=== PATIENT | male | born 1940 | race Caucasian/White ===

== ENCOUNTER → 2020-04-04 10:09 | Outpatient (BNVA) | payer MEDICARE, SELFPAY | PROVIDERS: Family Provider Internal Medicine; PCP Family Medicine; Visit Provider Specialist | DX: M25.519 Pain in unspecified shoulder (principal) | CPT/HCPCS: 73030 ==

== ENCOUNTER → 2020-11-28 09:48 | Outpatient (BNVA) | payer MEDICARE, SELFPAY | PROVIDERS: Family Provider Internal Medicine; PCP Nurse Practitioner; Visit Provider Urology | DX: R97.20 Elevated prostate specific antigen [PSA] (principal); N20.1 Calculus of ureter; K40.90 Unilateral inguinal hernia, without obstruction or gangrene, not specified as recurrent; N52.1 Erectile dysfunction due to diseases classified elsewhere; N40.1 Benign prostatic hyperplasia with lower urinary tract symptoms | CPT/HCPCS: 81003; 84153 ==

== ENCOUNTER → 2020-12-14 14:01 | Outpatient (BNVA) | payer MEDICARE, SELFPAY | PROVIDERS: Family Provider Internal Medicine; PCP Nurse Practitioner; Visit Provider Surgery | DX: Z11.59 Encounter for screening for other viral diseases (principal); K40.90 Unilateral inguinal hernia, without obstruction or gangrene, not specified as recurrent | CPT/HCPCS: 87635 ==

== ENCOUNTER 2020-12-21 07:34 | Day surgery (SDC) | payer MEDICARE, SELFPAY ==
[2020-12-20 16:13] VITALS: BMI 25.8
[2020-12-21] VITALS (13 sets, daily range): BP systolic 124–193; BP diastolic 93–130; PULSE 90–151; RESP 14–24; TEMP 36.1–36.7; O2SAT 92–100
--- NOTE | 2020-12-21 08:26 | W.PM.OPSUD ---
Surgery/Procedure H&P Update DATE OF PROCEDURE: December 21, 2020 DATE H&P PERFORMED: 12/12/20 H&P UPDATE INFORMATION: I have reviewed H&P completed within last 30 days, I have examined patient prior to procedure and No changes to prior documentation PREOP DIAGNOSIS: Right inguinal hernia PLANNED PROCEDURE: Operation Date: 12/21/20 09:05 Proposed Procedures p Laparoscopic Inguinal Hernia Repair w/Mesh 21997 K40.90(Not Applicable) - Tank Montanez MD
[2020-12-21] MEDS: sodium chloride 0.9% 1,000 ML 30 ML IV (08:27)
--- NOTE | 2020-12-21 08:34 | P.ANESASSM_ITS ---
Pre-Anesthetic Assessment Pre-Anesthetic Assessment: Height/Weight: Height 1.7 m Weight 74.843 kg Temp Pulse Resp BP Pulse Ox 97 F L 98 16 155/97 97 12/21/20 08:06 12/21/20 08:06 12/21/20 08:06 12/21/20 08:06 12/21/20 08:06 Preop Diagnosis: Right inguinal hernia Proposed Procedure: Operation Date: 12/21/20 09:05 Proposed Procedures p Laparoscopic Inguinal Hernia Repair w/Mesh 19643 K40.90(Not Applicable) - Tank Montanez MD Familial anesthetic complications: None Was Beta Saúl taken within 24 hours: N/A Last intake: Intake Last Liquid Date 12/20/20 Last Liquid Time 22:00 Last Solid Date 12/20/20 Last Solid Time 22:00 Social: Social History: No alcohol and No tobacco Exam: Pre-Anes Outpt Exam: alert, oriented x 3, clear to auscultation bilaterally and regular rate & rhythm Airway: Cervical ROM: WNL MP: 3 Dentition: Full CV/HEM: CV/HEM: Afib, DVT and HTN Comments: coumadin on Metabolic: Metabolic: Hyperlipidemia Anesthetic Plan: ASA status: 3 Anesthesia: General Risk of > 500 ml bl ood loss (7ml/kg in children): No Meds/Allergies Current Medications: Current Medications Generic Name Dose Route Start Last Admin Trade Name Freq PRN Reason Stop Dose Admin Sodium Chloride 1,000 mls @ 30 ml s/hr 12/21/20 08:00 12/21/20 08:27 Sodium Chloride 0.9% IV 12/22/20 07:59 30 mls/hr .Q24H JAQUELINE Administration PFSH Anesthesia PFSH: Medical History (Updated 12/12/20 @ 18:21 by Tank Montanez MD) Atrial fibrillation Elevated PSA Erectile dysfunction GERD (gastroesophageal reflux disease) Hx of deep venous thrombosis Surgical History (Updated 12/12/20 @ 13:28 by Tank Montanez MD) H/O circumcision H/O colonoscopy 2009 History of uvulectomy Hx of appendectomy Hx of bilateral cataract extraction Hx of tonsillectomy Family History Other Adopted Social History (Updated 12/12/20 @ 13:19 by Angelika Mohan LPN) Smoking and tobacco status: never smoked Alcohol intake: never Adopted: Yes Household members: spouse Marital status: Current occupational status: retired History of recent travel: Yes (2 weeks ago) Data Anesthesia Cardiac Studies: No Data to Display
--- NOTE | 2020-12-21 11:33 | PM.OP ---
Operative Report Date of procedure: December 21, 2020 Pre-op Diagnosis: Right inguinal hernia Post-op Diagnosis: Right incarcerated indirect inguinal hernia Procedure Done: Laparoscopic total extraperitoneal repair of right indirect inguinal hernia with ultraPro mesh measuring 15 x 10 cm Pathology: none sent Surgeon: Tank Montanez Anesthesia: General Condition: stable Disposition: PACU Procedure: The patient was taken to the operating room. After IV antibiotic was administered, the abdomen was prepped and draped in a sterile manner. Using a 15 blade, a 1.0 cm transverse incision was made infraumbilically on the right side. Subcutaneous tissue was divided using electrocautery and the anterior rectus sheath divided using an 11 blade. The rectus muscle was retracted laterally and the extraperitoneal space identified. A 11 mm port was placed and 12 mm of pneumoperitoneum was created. A 10 mm 30? scope was introduced and the retrorectus space was opened using the camera up to the pubic symphysis and 5 mm ports were placed in the midline, one 2-fingerbreadths above the pubic symphysis and the other midway between these two ports under direct visualization. Blunt dissection was carried out to open up the tissue in the midline and to the pubic symphysis, which was identified. The dissection was then carried laterally where the iliopubic tract was identified. There was no femoral or obturator hernia noted. There was a large direct hernia which is incarcerated, which is reduced and the hernia sac was everted and secured using Securestraps. The inferior epigastric artery was identified and dissection was carried posterior to it and laterally, the space was opened up to the level of the umbilicus superior to the anterior superior iliac spine. I then proceeded to dissect out the spermatic cord and there was no indirect hernial sac noted . 15 x 10cm Ultrapro mesh was rolled and introduced through the 10 mm port and rolled laterally and apposed well against the abdominal wall to cover the myopectineal orifice completely. The mesh was secured with Securestraps. 10 Cc of 0.5% Marcaine was infiltrated into the preperitoneal space. The extraperitoneal space was desufflated under direct visualization to ensure no slippage of hernial sac under the mesh. All ports were removed, the anterior rectus fascia at the infraumbilical port closed using figure of eight 0 Vicryl sutures, subcutaneous tissue approximated using 3-0 Vicryl sutures and skin at all three port sites were closed using running subcuticular 4-0 Monocryl sutures and Dermabond. 10 mL of 0.5% Marcaine was infiltrated at the port sites. The patient was stable throughout the procedure.
[2020-12-21] MEDS: fentaNYL 50 mcg/mL INJ 2mL IVP ×2 (11:47→11:52)
[2020-12-21] MEDS: labetalol 5 mg/mL SDV 20mL IVP (12:10)
[2020-12-21] MEDS: HYDROcodone-acetaminophen 5-325 mg Tablet 1 TAB PO (13:02)
--- NOTE | 2020-12-21 18:35 | ANE.PACU2 ---
Inpatient post-anesthesia follow up: Airway intact: Yes Vital signs: Temperature 97.2 F Pulse Rate 104 Respiratory Rate 16 Blood Pressure 141/108 Pulse Oximetry 92 Oxygen Delivery Me thod Room Air Oxygen Flow Rate 8 Fraction of Inspir ed Oxygen Hydration adequate: Yes Nausea and vomiting: No Pain level: 3 Mental status: Baseline
== END 2020-12-21 13:20 | disposition home or self-care (01) ==
PROVIDERS: PCP Nurse Practitioner; Visit Provider Surgery
PROC: (CPT 49650; principal; 2020-12-21 09:05)
DX: K40.30 Unilateral inguinal hernia, with obstruction, without gangrene, not specified as recurrent (principal); I48.91 Unspecified atrial fibrillation; I10 Essential (primary) hypertension; Z86.718 Personal history of other venous thrombosis and embolism; Z79.82 Long term (current) use of aspirin
CPT/HCPCS: 49650; 12345; J0690; J2405; J2704; J2710; J3010; J3490; J7030

== ENCOUNTER 2021-01-02 14:14 | Outpatient (CLI) | payer MEDICARE, SELFPAY ==
--- NOTE | 2021-01-02 14:24 | USCV_ITS ---
Jairo Mae Age: 80 Gender: M : 1940 Exam Date: 01/02/2021 14:25 Ordering Phys: Fernanda Zuluaga MD Technologist: Tomasa Petit Exam Location: [facility] – [place] Indication: LLE PAIN AND SWELLING HISTORY: Lower extremity swelling. Lower extremity pain. PROCEDURES: Venous duplex imaging was performed in only the left lower extremity. The following venous structures were evaluated: common femoral vein, profunda vein, proximal portion of the greater saphenous vein, superficial femoral vein, and the popliteal vein. In addition, the posterior tibial veins were evaluated. In addition, the posterior tibial and peroneal trunk were evaluated. FINDINGS: Evidence of acute occlusive deep vein thrombosis in the left popliteal, peroneal and lesser saphenous veins with abnormal flow dynamics. Otherwise no DVT. PRELIM GIVEN TO DR. BANG WHO DIRECTED THE PT TO GO [facility] AND WILL RECEIVE A PHONE CALL FROM THE OFFICE LATER ON TODAY CONCLUSIONS There is evidence of acute left lower extremity superficial vein thrombosis, popliteal, peroneal and LSV. Preliminary report called after completion of the exam. Dr. Nicki Kline DO (Electronically Signed) Final Date: 02 January 2021 15:09 S
== END 2021-01-02 14:15 | disposition home or self-care (01) ==
PROVIDERS: PCP Nurse Practitioner; Visit Provider Family Medicine
DX: Z86.718 Personal history of other venous thrombosis and embolism (principal); M79.605 Pain in left leg; M79.89 Other specified soft tissue disorders
CPT/HCPCS: 93971

== ENCOUNTER → 2021-04-04 12:52 | Outpatient (BNVA) | payer MEDICARE, SELFPAY | PROVIDERS: PCP Nurse Practitioner; Visit Provider Specialist | DX: G40.909 Epilepsy, unspecified, not intractable, without status epilepticus (principal) | CPT/HCPCS: 95816 ==

== ENCOUNTER 2021-11-27 09:12 | Outpatient (CLI) | payer MEDICARE, SELFPAY | END 2021-11-27 09:13 | disposition home or self-care (01) | LOC: LAB 09:16 | PROVIDERS: PCP Nurse Practitioner; Visit Provider Urology | DX: R97.20 Elevated prostate specific antigen [PSA] (principal) | CPT/HCPCS: 36415; 81003; 84153 ==

== ENCOUNTER → 2021-12-20 14:28 | Outpatient (BNVA) | payer MEDICARE, SELFPAY | PROVIDERS: PCP Nurse Practitioner; Visit Provider Podiatrist Foot & Ankle Surgery | DX: M79.671 Pain in right foot (principal); M79.672 Pain in left foot; M19.072 Primary osteoarthritis, left ankle and foot; M19.071 Primary osteoarthritis, right ankle and foot | CPT/HCPCS: 73630 ==

== ENCOUNTER 2022-02-07 15:05 | Outpatient (CLI) | payer MEDICARE, SELFPAY | END 2022-02-07 15:06 | disposition home or self-care (01) | LOC: SPT 15:06 | PROVIDERS: PCP Nurse Practitioner; Visit Provider Podiatrist Foot & Ankle Surgery | DX: Z46.89 Encounter for fitting and adjustment of other specified devices (principal); L60.3 Nail dystrophy; M19.90 Unspecified osteoarthritis, unspecified site; M21.371 Foot drop, right foot; M21.372 Foot drop, left foot | CPT/HCPCS: 97760; L3030 ==

== ENCOUNTER → 2022-04-26 10:52 | Outpatient (BNVA) | payer MEDICARE, SELFPAY | PROVIDERS: PCP Nurse Practitioner; Visit Provider Specialist | DX: M19.011 Primary osteoarthritis, right shoulder (principal); M19.012 Primary osteoarthritis, left shoulder; Z71.89 Other specified counseling | CPT/HCPCS: 20610; J1100; J2795; J3301 ==

== ENCOUNTER → 2022-10-11 10:01 | Outpatient (BNVA) | payer MEDICARE, SELFPAY | PROVIDERS: PCP Nurse Practitioner; Visit Provider Specialist | DX: M19.011 Primary osteoarthritis, right shoulder (principal); M19.012 Primary osteoarthritis, left shoulder | CPT/HCPCS: 20610; J1100; J2795; J3301 ==

== ENCOUNTER → 2022-11-05 11:58 | Outpatient (BNVA) | payer MEDICARE, SELFPAY | PROVIDERS: PCP Family Medicine; Visit Provider Internal Medicine Cardiovascular Disease | DX: I48.91 Unspecified atrial fibrillation (principal); Z79.01 Long term (current) use of anticoagulants; M79.671 Pain in right foot; M79.672 Pain in left foot; I10 Essential (primary) hypertension; Z86.718 Personal history of other venous thrombosis and embolism; E78.5 Hyperlipidemia, unspecified | CPT/HCPCS: 99213 ==

== ENCOUNTER → 2022-11-12 08:52 | Outpatient (BNVA) | payer MEDICARE, SELFPAY | PROVIDERS: PCP Family Medicine; Visit Provider Podiatrist Foot & Ankle Surgery | DX: B35.1 Tinea unguium (principal); M77.42 Metatarsalgia, left foot; M77.41 Metatarsalgia, right foot; R60.9 Edema, unspecified; M20.21 Hallux rigidus, right foot; M20.22 Hallux rigidus, left foot | CPT/HCPCS: 11721; 99204 ==

== ENCOUNTER → 2022-11-21 11:20 | Outpatient (BNVA) | payer MEDICARE, SELFPAY | PROVIDERS: PCP Family Medicine; Visit Provider Urology | DX: N40.1 Benign prostatic hyperplasia with lower urinary tract symptoms (principal) | CPT/HCPCS: 84153 ==

== ENCOUNTER → 2022-11-27 10:10 | Outpatient (BNVA) | payer MEDICARE, SELFPAY | PROVIDERS: PCP Family Medicine; Visit Provider Urology | DX: N40.1 Benign prostatic hyperplasia with lower urinary tract symptoms (principal); R97.20 Elevated prostate specific antigen [PSA]; N52.1 Erectile dysfunction due to diseases classified elsewhere | CPT/HCPCS: 81003; 99213 ==

== ENCOUNTER → 2023-01-17 08:15 | Outpatient (BNVA) | payer MEDICARE, SELFPAY | PROVIDERS: PCP Family Medicine; Visit Provider Specialist | DX: M19.011 Primary osteoarthritis, right shoulder (principal); M19.012 Primary osteoarthritis, left shoulder | CPT/HCPCS: 20610; J1100; J2795; J3301 ==

== ENCOUNTER → 2023-01-21 08:37 | Outpatient (BNVA) | payer MEDICARE, SELFPAY | PROVIDERS: PCP Family Medicine; Visit Provider Podiatrist Foot & Ankle Surgery | DX: M77.42 Metatarsalgia, left foot (principal); M77.41 Metatarsalgia, right foot; B35.1 Tinea unguium; R60.9 Edema, unspecified; M20.21 Hallux rigidus, right foot; M20.22 Hallux rigidus, left foot | CPT/HCPCS: 99213 ==

== ENCOUNTER → 2023-04-01 08:14 | Outpatient (BNVA) | payer MEDICARE, SELFPAY | PROVIDERS: PCP Family Medicine; Visit Provider Podiatrist Foot & Ankle Surgery | DX: I73.9 Peripheral vascular disease, unspecified (principal); B35.1 Tinea unguium; R60.9 Edema, unspecified; M20.21 Hallux rigidus, right foot; M20.22 Hallux rigidus, left foot; M77.42 Metatarsalgia, left foot; M77.41 Metatarsalgia, right foot | CPT/HCPCS: 11721 ==

== ENCOUNTER → 2023-04-18 09:05 | Outpatient (BNVA) | payer MEDICARE, SELFPAY | PROVIDERS: PCP Family Medicine; Visit Provider Specialist | DX: M19.011 Primary osteoarthritis, right shoulder (principal); M19.012 Primary osteoarthritis, left shoulder; Z71.89 Other specified counseling | CPT/HCPCS: 20610; J1100; J2795; J3301 ==

== ENCOUNTER 2023-05-03 13:42 | Outpatient (CLI) | payer MEDICARE, SELFPAY ==
--- NOTE | 2023-05-03 14:08 | USCV_ITS ---
Jairo Mae Age: 82 Gender: M : 1940 Exam Date: 05/03/2023 14:14 Ordering Phys: Fernanda Zuluaga MD Technologist: Farhat Reid Exam Location: [facility] [place] Indication: Calf pain RIGHT LEFT Brachial 148.00 mmHg Brachial 154.00 mmHg Pressure (mmHg) Waveform Pressure (mmHg) Waveform 220.00 DPA 220.00 177.00 Pre-Exercise Toe Pressure 165.00 1.20 Pre-Exercise Toe/Brachial Index 1.10 FINDINGS The ankle vessels were found to be noncompressible bilaterally Resting TOMASA of 1.2 on the right and 1.1 on the left Normal PVR waveforms bilaterally CONCLUSIONS 1. Noncompressible ankle vessels bilaterally 2. Normal resting TBIs bilaterally 3. The above features suggesting extensive arterial sclerosis with no significant arterial obstruction Dr Tank Reaves MD FAC (Electronically Signed) Final Date: 28 May 2023 10:11 S
== END 2023-05-03 13:43 | disposition home or self-care (01) ==
PROVIDERS: PCP Family Medicine; Visit Provider Family Medicine
DX: M79.661 Pain in right lower leg (principal); M79.662 Pain in left lower leg
CPT/HCPCS: 93923

== ENCOUNTER → 2023-05-22 08:19 | Outpatient (BNVA) | payer MEDICARE, SELFPAY | PROVIDERS: PCP Family Medicine; Visit Provider Urology | DX: N40.1 Benign prostatic hyperplasia with lower urinary tract symptoms (principal); R97.20 Elevated prostate specific antigen [PSA]; N52.1 Erectile dysfunction due to diseases classified elsewhere | CPT/HCPCS: 51798; 81003; 99213 ==

== ENCOUNTER → 2023-06-10 08:06 | Outpatient (BNVA) | payer MEDICARE, SELFPAY | PROVIDERS: PCP Family Medicine; Visit Provider Podiatrist Foot & Ankle Surgery | DX: I73.9 Peripheral vascular disease, unspecified (principal); B35.1 Tinea unguium; M20.21 Hallux rigidus, right foot; M20.22 Hallux rigidus, left foot | CPT/HCPCS: 11721; 20600; 64455 ==

== ENCOUNTER → 2023-07-25 10:01 | Outpatient (BNVA) | payer MEDICARE, SELFPAY | PROVIDERS: PCP Family Medicine; Visit Provider Specialist | DX: M19.011 Primary osteoarthritis, right shoulder (principal); M19.012 Primary osteoarthritis, left shoulder; Z71.89 Other specified counseling | CPT/HCPCS: 20610; J1100; J2795; J3301 ==

== ENCOUNTER → 2023-08-19 08:48 | Outpatient (BNVA) | payer MEDICARE, SELFPAY | PROVIDERS: PCP Family Medicine; Visit Provider Podiatrist Foot & Ankle Surgery | DX: B35.1 Tinea unguium (principal); M20.21 Hallux rigidus, right foot; M20.22 Hallux rigidus, left foot; I73.9 Peripheral vascular disease, unspecified | CPT/HCPCS: 11721 ==

== ENCOUNTER → 2023-10-21 09:28 | Outpatient (BNVA) | payer MEDICARE, SELFPAY | PROVIDERS: PCP Family Medicine; Visit Provider Podiatrist Foot & Ankle Surgery | DX: B35.1 Tinea unguium (principal); M20.21 Hallux rigidus, right foot; M20.22 Hallux rigidus, left foot; I73.9 Peripheral vascular disease, unspecified; M76.821 Posterior tibial tendinitis, right leg | CPT/HCPCS: 11721; 99213 ==

== ENCOUNTER → 2023-11-04 13:00 | Outpatient (BNVA) | payer MEDICARE, SELFPAY | PROVIDERS: PCP Family Medicine; Visit Provider Internal Medicine | DX: I48.91 Unspecified atrial fibrillation (principal); Z86.718 Personal history of other venous thrombosis and embolism; I10 Essential (primary) hypertension; Z79.01 Long term (current) use of anticoagulants | CPT/HCPCS: 99214 ==

== ENCOUNTER → 2023-11-18 14:10 | Outpatient (BNVA) | payer MEDICARE, SELFPAY | PROVIDERS: PCP Family Medicine; Visit Provider Nurse Practitioner | DX: M19.011 Primary osteoarthritis, right shoulder; M19.012 Primary osteoarthritis, left shoulder | CPT/HCPCS: 20610; J2795; J3301 ==

== ENCOUNTER → 2024-01-06 09:50 | Outpatient (BNVA) | payer MEDICARE, SELFPAY | PROVIDERS: PCP Family Medicine; Visit Provider Podiatrist Foot & Ankle Surgery | DX: B35.1 Tinea unguium (principal); M20.21 Hallux rigidus, right foot; M20.22 Hallux rigidus, left foot; I73.9 Peripheral vascular disease, unspecified; M76.821 Posterior tibial tendinitis, right leg | CPT/HCPCS: 11721 ==

== ENCOUNTER → 2024-02-17 08:04 | Outpatient (BNVA) | payer MEDICARE, SELFPAY | PROVIDERS: PCP Family Medicine; Visit Provider Nurse Practitioner | DX: M19.011 Primary osteoarthritis, right shoulder (principal); M19.012 Primary osteoarthritis, left shoulder; Z71.89 Other specified counseling | CPT/HCPCS: 20610; J1100; J2795; J3301 ==